=== PATIENT | female | born 1960 ===

== ENCOUNTER 2017-01-09 08:25 | Day surgery (SDC) | payer MEDICARE, OTHER ==
[2017-01-09] VITALS (7 sets, daily range): BP systolic 95–120; BP diastolic 61–69; PULSE 60–75; RESP 18; Ht 160 cm; Wt 62.0 kg
[~2017-01-09] VITALS: Ht 160 cm; Wt 62.0 kg
[2017-01-09] MEDS ORDERED: METH10TA2 PO (09:19)
[2017-01-09] MEDS ORDERED: MIDAZOLAM 1 MG/ML 2 ML INJ ONE (11:50)
[2017-01-09] MEDS ORDERED: SOD CHLORIDE 0.9% 500 ML ONE (11:50)
[2017-01-09] MEDS ORDERED: FENTAnyl 50 MCG/ML VIAL ONE (11:50)
[2017-01-09] MEDS ORDERED: LIDOCAINE 1% (MDV) 20 ML INJ ONE (11:50)
--- NOTE | 2017-01-09 15:51 | RADRPT ---
PROCEDURE: CT GUIDED PERCUTANEOUS RIGHT AXILLARY MASS BIOPSY. CLINICAL INDICATION: Lymphoma TECHNIQUE: Informed consent was obtained from the patient following careful explanation of the risks and benefi ts of the procedure. The patient was placed supine on the CT table. Multiple axial CT images through the upper thorax wer e acquired without contrast. The enlarged right axillary / retropectoral lymph nodes were localized. A site in the patient's right axilla was selected and marked. The area was prepped and draped in t he usual sterile fashion. 1% lidocaine was utilized. Under CT guidance an 18 gauge co-axial core bio psy needle was advanced into the lymph node mass. 6 core biopsy specimens were obtained with a biop sy gun. Tissue specimen submitted in RPMI, formalin, and normal saline to pathology for interpretati on and culture. A sterile dressing was applied. There were no immediate complications. COMPARISON: PET-CT from July 2016 FINDINGS: Enlarged right axillary and retropectoral lymph nodes. RPTAT: AA IMPRESSION: Uncomplicated CT-guided biopsy of enlarged right axillary and retropectoral lymph nodes which were m etabolically active on that PET-CT from July 2016. Physician Donna Date Time Electronically viewed and signed by Physician Donna on 01/09/2017 15:51 /
== END 2017-01-09 14:11 | disposition home or self-care (01) ==
LOC: SDS 08:25 → C/S 08:25
PROVIDERS: ATTEND Internal Medicine Hematology & Oncology
DX: R59.0 Localized enlarged lymph nodes (principal); Z85.72 Personal history of non-Hodgkin lymphomas
CPT/HCPCS: 38505; 77012; 88307; 88341; 88342; J7040; J2250; J3010